=== PATIENT | female | born 1985 | race African-American/Black ===

== ENCOUNTER 2020-08-24 13:38 | Emergency (ER) | payer OTHER ==
[~2020-08-24] VITALS: Ht 167.6 cm; Wt 125.2 kg
[~2020-08-24 13:38] MED LIST: ACETAMINOPHEN-1 EAC1 PO; ALEVE220 MG PO; APAP500 PO; DERMOPLAST SPRA56 ML; HUMULIN N100 UNIT/1; HYDROCORTISONE30 G9 RE; IBUPROFEN 600600 M1 PO; LANOLIN56 GM; METFORMIN HCL500 MG PO; NOVOLOG100 UNIT/1; PRILOSEC40 MG PO; SENNA PLUS TAB1 EACH PO; TRINATE TABLET1 TAB PO; TUCKS1 EAC1 TP; XANAX 0.5 MG0.5 MG PO
[2020-08-24 14:29] LABS: URINE BILIRUBIN NEGATIVE (Negative); URINE BLOOD 3+ (Negative); URINE CLARITY CLOUDY; URINE COLOR YELLOW; URINE GLUCOSE-RANDOM* NEGATIVE (Negative); URINE KETONES NEGATIVE (Negative); URINE LEUKOCYTES-REFLEX TRACE (Negative); URINE NITRITE-REFLEX NEGATIVE (Negative); URINE PROTEIN (DIPSTICK) NEGATIVE (Negative); URINE SPECIFIC GRAVITY 1.025 (1.005-1.035); URINE UROBILINOGEN 0.2 E.U./dl (0.2-1.0)
[2020-08-24 14:45] LABS: SQUAMOUS >10 Many /LPF (0-3)
[2020-08-24 14:46] LABS: BACTERIA-REFLEX 1-9 Few /HPF (None Seen); CASTS None Seen /LPF (None Seen); CRYSTALS None Seen /LPF (None Seen); URINE RBC 3-10 Few /HPF (0-2); URINE WBC-REFLEX 6-15 Few /HPF (0-5)
[2020-08-24] MEDS ORDERED: WELLBUTRIN 75 M75 M1 PO (14:58)
[2020-08-24] MEDS ORDERED: LABETALOL HCL100 MG PO (14:58)
[2020-08-24] MEDS ORDERED: VITAMIN D (15:00)
[2020-08-24 15:12] LABS: ABSOLUTE NEUTROPHILS 3.5 thou/uL (1.4-8.2); BASOPHILS 0.7 % (0.0-2.0); EOSINOPHILS 3.7 % (0.0-3.0); HEMATOCRIT 34.4 % (37.0-47.0); HEMOGLOBIN 10.7 gm/dL (12.0-15.0); MCH 21.7 pg (26.0-34.0); MCHC 31.1 g/dL (28.0-37.0); MCV 69.7 fL (80.0-100.0); MONOCYTES 6.7 % (1.0-8.0); PLATELET COUNT 289 thou/uL (150-400); POLYS 62.9 % (36.0-66.0); RBC 4.93 mil/uL (4.20-5.00); RDW 19.2 % (10.5-14.5); WBC 5.6 thou/uL (4.0-11.0)
[2020-08-24 15:18] LABS: ANION GAP 12 mmol/L (7-16); BUN 17 mg/dL (7-18); CALCIUM 9.3 mg/dL (8.5-10.1); CHLORIDE 103 mmol/L (98-107); CO2 27 mmol/L (21-32); CREATININE 0.9 mg/dL (0.6-1.0); GLUCOSE 109 mg/dL (74-106); POTASSIUM 3.9 mmol/L (3.5-5.1); SODIUM 142 mmol/L (136-145)
[2020-08-24 15:28] LABS: SGOT 10 U/L (15-37); SGPT 25 U/L (14-59); TOTAL BILIRUBIN 0.2 mg/dL (0.2-1.0); TOTAL PROTEIN 7.1 g/dL (6.4-8.2); TROPONIN-I <0.06 ng/mL (<0.06)
[2020-08-24 17:08] VITALS: BP 143/71
--- NOTE | 2020-08-25 07:11 | EKG ---
[address] [address] ELECTROCARDIOGRAM REPORT Name: SANDRA FRANKLIN VELIA Room #: DEP [facility]#: [id number] Admission: 08/24/20 Attend Phys: Discharge: 08/24/20 Date of : 81 Report #: [id number] [facility] ED Test Date: 2020-08-24 Test Time: 14:22:29 Pat Name: SANDRA FRANKLIN Department: Room: Gender: F [employer]: DANIEL : 1985 Requested By: Tim Minaya Order Number: [id number] MD: Glenn Trejo Measurements Intervals [place] Rate: 72 P: 41 [place]: 159 QRS: 3 QRSD: 97 T: 5 QT: 405 QTc: 444 Interpretive Statements Sinus rhythm Compared to ECG 07/01/2015 21:38:48 Left ventricular hypertrophy no longer present Electronically Signed On 08-25-2020 7:11:23 [employer] by Glenn Trejo [email or web address] <ELECTRONICALLY SIGNED> By: Glenn Trejo MD, [facility] 08/25/20 0711 1422 1422 Glenn Trejo MD, FACC /EPI
== END 2020-08-24 17:09 | disposition home or self-care (01) ==
LOC: ER 13:38
PROVIDERS: Emergency Medicine
DX: I10 Essential (primary) hypertension (principal); R42 Dizziness and giddiness; E11.9 Type 2 diabetes mellitus without complications; Z90.89 Acquired absence of other organs; Z79.899 Other long term (current) drug therapy; Z91.040 Latex allergy status; Z91.048 Other nonmedicinal substance allergy status